=== PATIENT | male | born 1980 | race Two or more races ===

== ENCOUNTER 2018-08-19 02:50 | Emergency (ER) | payer SELFPAY ==
[2018-08-19 02:54] VITALS: O2SAT 98
[2018-08-19 03:53] VITALS: RESP 18
--- NOTE | 2018-08-19 04:40 | ED PDOC ---
HPI: Psych/Substance Abuse <Michelle Valera - Last Filed: 08/19/18 06:27> Chief Complaint (Provider): Alcohol Ingestion ED Caveat: Intoxicated History Per: Patient, EMS Current Symptoms Are (Timing): Still Present Modifying Factor(s): Alcohol Additional Complaint(s): 38 year old male presents to the ED via EMS due to alcohol intoxication. EMS reports that they were called by [facility] because the patient was found stumbling in the streets. He admits to drinking "muchas cervezas". Offers no medical complaints. Denies trauma. PMD: none provided <Michelle Carter - Last Filed: 08/19/18 22:46> Time Seen by Provider: 08/19/18 02:57 Chief Complaint (Nursing): Alcohol Ingestion Past Medical History Vital Signs: Last Vital Signs Temp 98.1 F 08/19/18 02:51 Pulse 101 H 08/19/18 03:50 Resp 18 08/19/18 03:50 BP 133/76 08/19/18 03:50 Pulse Ox 98 08/19/18 06:06 <Michelle Valera - Last Filed: 08/19/18 06:27> Reviewed: Historical Data, Nursing Documentation, Vital Signs Vital Signs: Last Vital Signs Temp 98.1 F 08/19/18 02:51 Pulse 101 H 08/19/18 03:50 Resp 18 08/19/18 03:50 BP 133/76 08/19/18 03:50 Pulse Ox 98 08/19/18 03:50 - Medical History PMH: No Chronic Diseases - Surgical History Surgical History: No Surg Hx - Family History Family History: States: Unknown Family Hx - Social History Current smoker - smoking cessation education provided: No Alcohol: Social Drugs: Denies <Michelle Carter - Last Filed: 08/19/18 22:46> - Allergies Allergies/Adverse Reactions: Allergies Allergy/AdvReac Type Severity Reaction Status Date / Time No Known Allergies Allergy Verified 08/19/18 02:53 Review of Systems ROS Statement: Except As Marked, All Systems Reviewed And Found Negative <Michelle Carter - Last Filed: 08/19/18 22:46> Physical Exam - Reviewed Nursing Documentation Reviewed: Yes Vital Signs Reviewed: Yes - Physical Exam Comments: GENERAL APPEARANCE: Patient is awake, alert, oriented x 3, in no acute distress. Odor of alcohol on breath SKIN: Warm, dry; (-) cyanosis EYES: (+) conjunctival injection bilaterally ENMT: Mucous membranes moist. Airway patent: (-) stridor. NECK: Supple, FROM HEART AND CARDIOVASCULAR: (-) irregularity CHEST AND RESPIRATORY: (-) rales, (-) rhonchi, (-) wheezes; breath sounds equal. Respirations even and nonlabored. ABDOMEN: Soft, (-) distention, (-) tenderness, (-) guarding. NEURO AND PSYCH: Responsive to verbal stimuli, interacts appropriately. (-) facial asymmetry; tongue and uvula midline. Speech: clear. <Michelle Carter - Last Filed: 08/19/18 22:46> - ECG O2 Sat by Pulse Oximetry: 98 (Ra) Pulse Ox Interpretation: Normal <Michelle Carter - Last Filed: 08/19/18 22:46> Medical Decision Making Medical Decision Makin Pt sober and ambulating/tolerating PO. Pt to be discharged home. <Michelle Valera - Last Filed: 08/19/18 06:27> Medical Decision Makin:55 Impression: alcohol intoxication Initial Plan: --Alcohol serum --Accuceck --re-evaluation --monitor for clinical sobriety Accucheck: 99. Serum alcohol: 279 0530 Patient sleeping comfortably. No acute distress noted. 0600 Continuation of care per Dr Valera. Scribe Attestation: Documented by Jerri Kimble acting as a scribe for Michelle Carter PA-C Provider Scribe Attestation: All medical record entries made by the Scribe were at my direction and personally dictated by me. I have reviewed the chart and agree that the record accurately reflects my personal performance of the history, physical exam, me dical decision making, and the department course for this patient. I have also personally directed, reviewed, and agree with the discharge instructions and disposition. <Emma,Michelle Ellington - Last Filed: 08/19/18 22:46> Disposition <SotoMichelle - Last Filed: 08/19/18 06:27> - Patient ED Disposition Is Patient to be Admitted: No Counseled Patient/Family Regarding: Studies Performed, Diagnosis, Need For Followup - Disposition Disposition: Routine/Home Disposition Time: 06:30 - POA Present On Arrival: None <Marian Caretresperanza Ellington - Last Filed: 08/19/18 22:46> - Clinical Impression Clinical Impression: Alcohol intoxication - Disposition Referrals: [facility] [Outside] Condition: STABLE Additional Instructions: La atencin mdica de emergencia que recibi hoy se dirigi a sofía sntomas agudos. Si le recetaron algn medicamento, llnelo y tmelo segn las indicaciones. Los sntomas pueden tardar varios costa en resolverse. Regrese al Departamento de Emergencias si sofía sntomas empeoran, no mejoran o si tiene otros problemas. Comunquese con lopez mdico dentro de 2 costa para joshua nueva evaluacin y madhuri un seguimiento o llame a nakul de los mdicos / clnicas a los que tillman sido referido y que figuran en el formulario de Informacin de visita al paciente que se incluye en lopez paquete de nader. Lleve todos los documentos que le entregaron al momento del nader junto con todos los medicamentos que est tomando para lopez visita de seguimiento. Nuestro tratamiento no puede reemplazar la atencin mdica continua por parte de un proveedor de atencin primaria (PCP) fuera del departamento de emergencias. Instructions: Alcohol Use - When Is Drinking a Problem?, Alcohol Abuse and Alcoholism (DC), Effects of Alcohol on Your Health Forms: [facility] (Luxembourgish) Print Language: ICELANDIC Results - Lab Results Lab Results: 08/19/18 08/19/18 03:17 03:10 POC Glucose (mg/dL) 99 Alcohol, Quantitative 279 H <Michelle Valera - Last Filed: 08/19/18 06:27> - Lab Results Lab Results: 08/19/18 08/19/18 03:17 03:10 POC Glucose (mg/dL) 99 Alcohol, Quantitative 279 H <Michelle Carter - Last Filed: 08/19/18 22:46>
[2018-08-19 07:09] VITALS: BP 121/88; PULSE 91; TEMP 97.8
== END 2018-08-19 07:20 | disposition home or self-care (01) ==
LOC: H.ER 02:50
DX: F10.129 Alcohol abuse with intoxication, unspecified (principal); Y90.8 Blood alcohol level of 240 mg/100 ml or more
CPT/HCPCS: 82948; 99283; G0480